=== PATIENT | female | born 1985 | race Caucasian/White ===

== ENCOUNTER → 2021-07-16 12:24 | Outpatient (CLI) | payer OTHER, MEDICAID, SELFPAY ==
[2021-07-16 19:17] LABS: Alanine Aminotransferase 30 IU/L (<35); Albumin 3.9 g/dL (3.5-5.0); Albumin Globulin Ratio 1.4 (1.0-2.8); Alkaline Phosphatase 48 U/L (38-126); Aspartate Aminotransferase 32 IU/L (14-36); BUN Creatinine Ratio 20.8 (6-22); Bilirubin Total 0.5 mg/dL (0.2-1.3); Blood Urea Nitrogen 11 mg/dL (7-17); Calcium 9.2 mg/dL (8.4-10.2); Carbon Dioxide 27 mmol/L (22-32); Chloride 101 mmol/L (98-107); Estimated Glomerular Filt Rate > 60 mL/min (>60); Globulin 2.8 g/dL (1.7-4.1); Glucose 82 mg/dL (70-100); HEMOLYSIS < 15 (0-50); Potassium 4.4 mmol/L (3.4-5.1); Sodium 137 mmol/L (137-145); Total Protein 6.7 g/dL (6.3-8.2)
== END ==
PROVIDERS: PCP Physician Assistant; Visit Provider Physician Assistant
DX: R74.8 Abnormal levels of other serum enzymes (principal)
CPT/HCPCS: 80053

== ENCOUNTER → 2021-07-31 09:38 | Outpatient (CLI) | payer OTHER, MEDICAID, SELFPAY ==
--- NOTE | 2021-07-31 09:38 | DI.US.S_ITS ---
PROCEDURE: US ABDOMEN LIMITED INDICATIONS: eval lumps on b/l lumbar/sacral area TECHNIQUE: Real-time focused scanning was performed of the abdomen, with image documentation. COMPARISON: None. FINDINGS: Three palpable areas were examined. The 1st area in the left lower back changes slightly with Valsalva and with bending. This focus is isoechoic to fat and is seen within the deeper paraspinal tissues, below the subcutaneous fat layer. The 2nd palpable area in the left low back demonstrates no abnormalities by ultrasound. The 3rd palpable area, more prominent with bending is consistent with bone. IMPRESSION: 1. Possible small fat containing lumbar hernia corresponding to the 1st left low back palpable lump. 2. No other suspicious abnormalities. Dictated by: Leisa Bermudez M.D. on 07/31/2021 at 13:25 Approved by: Leisa Bermudez M.D. on 07/31/2021 at 13:30
== END ==
PROVIDERS: PCP Physician Assistant; Referring Provider Physician Assistant; Visit Provider Physician Assistant
DX: R22.2 Localized swelling, mass and lump, trunk (principal)
CPT/HCPCS: 76705

== ENCOUNTER → 2021-08-21 07:34 | Outpatient (CLI) | payer OTHER, MEDICAID, SELFPAY ==
--- NOTE | 2021-08-21 07:36 | DI.MRI.S_ITS ---
PROCEDURE: MR LUMBAR SPINE WO CON INDICATIONS: Strain of muscle, fascia and tendon of lower back TECHNIQUE: Noncontrast sagittal T1 spin echo and T2 fast echo, sagittal STIR, and T2 fast spin echo through the lumbar spine. In cases with scoliosis, additional coronal T2 fast spin echo may be performed. COMPARISON: None. FINDINGS: Image quality: Excellent. Alignment and Curvature: There is normal bony alignment. Bone Marrow: Marrow is of normal overall signal. No acute vertebral body compression fractures. Spinal Cord: Conus medullaris terminates at the normal level. Visualized cord demonstrates normal signal and size. Regional Soft Tissues: No paravertebral masses. T12-L1: Normal appearance. L1-L2: Normal appearance. L2-L3: Normal appearance. L3-L4: Mild facet hypertrophy. No spinal canal or neural foraminal stenosis. L4-L5: Diffuse disc bulge with a superimposed broad-based posterior disc protrusion flattens and indents the ventral thecal sac. Mild displacement of the descending L5 nerve roots in both subarticular zones. No neural foraminal stenosis. Mild facet hypertrophy. L5-S1: No spinal canal or neural foraminal stenosis. Mild facet hypertrophy. IMPRESSION: Disc bulge and protrusion at L4-L5 which produces mild displacement of the descending L5 nerve roots. Correlate for any corresponding L5 radicular symptoms. Otherwise no spinal canal or neural foraminal stenosis. Dictated by: Pedro Mixon M.D. on 08/21/2021 at 8:30 Approved by: Pedro Mixon M.D. on 08/21/2021 at 8:31
== END ==
PROVIDERS: PCP Physician Assistant; Referring Provider Physician Assistant Surgical; Visit Provider Physician Assistant Surgical
DX: S39.012A Strain of muscle, fascia and tendon of lower back, initial encounter (principal); M51.26 Other intervertebral disc displacement, lumbar region; X58.XXXA Exposure to other specified factors, initial encounter
CPT/HCPCS: 72148

== ENCOUNTER → 2021-12-03 07:41 | Outpatient (CLI) | payer OTHER, MEDICAID, SELFPAY ==
[2021-12-03 20:52] LABS: COVID19 - ORCAS (NP or Nasal) Negative (Negative)
== END ==
PROVIDERS: PCP Physician Assistant; Visit Provider Family Medicine
DX: Z20.822 Contact with and (suspected) exposure to COVID-19 (principal); Z01.812 Encounter for preprocedural laboratory examination
CPT/HCPCS: C9803; U0003

== ENCOUNTER 2021-12-04 10:59 | Day surgery (SDC) | payer OTHER, MEDICAID, SELFPAY ==
[2021-11-27 14:28] VITALS: BMI 21.4
[2021-12-04] VITALS (7 sets, daily range): BP systolic 95–109; BP diastolic 56–66; PULSE 54–94; RESP 16–28; TEMP 36.3–36.8; O2SAT 98–100; BMI 21.4
--- NOTE | 2021-12-04 | PATH_ITS ---
[facility] Accession Number: [id number] . 01 Material submitted: . back - LEFT LOWER BACK . 01 Clinical history: . EXCISIONAL BIOPSY OF MASS BENIGN LIPOMATOUS NEOPLASM OF SKIN AND SUBCUTANEOUS . 01 Diagnosis: Soft Tissue, Left Lower Back, Excision: Lipoma. MRV 12/06/2021 1630 Local . 01 Electronically signed: . Marium Magallon MD, Pathologist NPI- [id number] . 01 Gross description: . LEFT LOWER BACK: Received in formalin are 3 fragments of welsh soft tissue measuring 4.0 x 3.0 x 1.6 cm. Tissue is inked. Specimen is sectioned and submitted in phlebotomy services representative sections in 3 cassettes. /JAMILAH 12/05/2021 1853 Local . 01 Pathologist provided ICD-10: D17.1 . 01 CPT . 432497 Performed at: 01 [facility] [address] [place] [address] [address], [place], [place] [id number] MD Chay Dunaway MD Phone: [phone]
[2021-12-04] MEDS: LACTATED RINGERS 1,000 ML 42 ML IV (11:32)
--- NOTE | 2021-12-04 11:43 | PM.HP.1 ---
History of Present Illness History of Present Illness Date Patient Seen: 12/04/21 Time Patient Seen: 11:43 Chief complaint: Excisional Biopsy of L Lower Back Mass Narrative: Bri is here for her lipoma excision. See office note from August for details. Patient History Medical History Acute maxillary sinusitis Breast lump in lower-outer quadrant Chicken pox Closed fracture of lumbar vertebra without spinal cord injury (~07/22/13) Elevated liver enzymes Encounter for confirmation of test result with physical examination Herpes zoster without complication Other abnormal cytological findings on specimens from cervix uteri Vaginal bleeding before 22 weeks gestation Venereal disease, unspecified Family & Social History Family History Father Atrial fibrillation Mother Arthritis Hyperlipidemia Social History: household members significant other Tobacco & Substance use: Smoking Status Never smoker alcohol intake never Substance Use Type does not use Meds Home Medications and Allergies Home Medications Medication Instructions Recorded Confirmed Type No Known Home Medications 12/04/21 12/04/21 History Allergies Allergy/AdvReac Type Severity Reaction Status Date / Time Sulfa (Sulfonamide Allergy Mild Rash Verified 12/04/21 11:33 Antibiotics) [SULFA (SULFONAMIDE ANTIBIOTICS)] Exam Vital Signs (past 8 hours): - 12/04/21 11:16 Temperature 97.3 F L Pulse Rate 54 L Respiratory Rate 16 Blood Pressure 98/59 L Pulse Oximetry 100 Oxygen Delivery Method Room Air Oxygen Delivery Method Room Air Narrative Exam Narrative: Left lower back soft tissue mass Assessment & Plan Assessment and plan (1) Palpable mass of lower back: Status: Acute Plan Plan for excision of left lower back mass in the OR. She understands the risks and benefits and agrees to proceed. Time Spent With Patient Critical Care time: I spent a total of [] minutes of critical care time on this patient's care today; this time is exclusive of procedural time.
--- NOTE | 2021-12-04 12:18 | SUR.OPER ---
Left Lateral on a samayoa bag, head on pillow, gel axillary roll in place, bottom leg bent with gel pad under knee to foot, upper leg straight and supported with pillows. Upper arm supported by pillows and secured over bottom arm to padded arm board, gel pad placed under right arm. Safety belt at torso, tape over blanket lower legs and over upper legs.
[2021-12-04] MEDS: BUPIVACAINE 0.5% W/ EPI (PF) 30 ML VIAL INJ (12:23)
--- NOTE | 2021-12-04 12:28 | PM.OP.1 ---
Operative Date/Time/Diagnoses Date of procedure: 12/04/21 Time of procedure: 12:28 Pre-op diagnosis: Left lower back lipoma Post-op diagnosis: same Procedure & Clinicians Procedure: Excisional biopsy of left lower back lipoma Same procedure as scheduled: Yes Surgeon: Saeid Mauricio Telegraph Equipment Maintainer: Mari Billy Operative Notes Procedure in detail: The patient was marked in the preoperative holding area. The patient was brought to the operating room, placed on the table in the supine position and general anesthesia was induced via LMA. She was then positioned in the right lateral decubitus position on a beanbag. The left lower back was prepped and draped in the usual fashion and a time-out was performed. We made a transverse incision over the mass of roughly 8 cm. We dissected down through subcutaneous adipose tissue until we encountered the mass which was about 5 cm x 5 cm x 5 cm and was consistent with a lipoma. The mass was excised. A few bleeders were cauterized and one bleeder had to be tied off with a [id number]-lcllf using 3-0 Vicryl. Once we achieved hemostasis we closed in layers using multiple interrupted 3-0 Vicryl dermal sutures followed by a running 4 Monocryl subcuticular closure. EBL: 10 mL Specimen: Lipomatous soft tissue mass of the left lower back roughly 5 cm Post-operative Condition: stable Disposition: PACU
[2021-12-04] MEDS: OXYCODONE IR 5 MG TABLET PO (12:50)
[2021-12-04] MEDS: ACETAMINOPHEN 325 MG TABLET 650 MG PO (12:50)
[2021-12-04] MEDS: ONDANSETRON 4 MG/2 ML INJ IV (12:51)
--- NOTE | 2021-12-04 13:46 | SUR.PHASEII ---
Pt ready to go, left in stable condition.
== END 2021-12-04 13:40 | disposition home or self-care (01) ==
PROVIDERS: PCP Physician Assistant; Referring Provider Surgery; Visit Provider Surgery
PROC: (CPT 21931; principal; 2021-12-04 11:30)
DX: D17.1 Benign lipomatous neoplasm of skin and subcutaneous tissue of trunk (principal)
CPT/HCPCS: 21931; 81025; J1100; J2250; J2405; J2704; J3010

== ENCOUNTER → 2022-10-04 11:08 | Outpatient (CLI) | payer OTHER, MEDICAID, SELFPAY ==
--- NOTE | 2022-10-04 11:11 | DI.US.S_ITS ---
PROCEDURE: US OB <= 14 WEEKS FETUS INDICATIONS: DATING, AMA OUTSIDE/PRIOR DATING DATA: Last menstrual period (LMP): 07/28/2022. LMP-based estimated date of delivery (SWAPNA): 05/04/2023. The calculations are made using the clinical SWAPNA of 05/04/2023. TECHNIQUE: Real-time scanning was performed of the fetus and maternal pelvic organs, with image documentation. Endovaginal scanning was also performed to better visualize the fetus and maternal ovaries. COMPARISON: None. FINDINGS: Embryo: Gestational sac is seen measuring 5.0 centimeters, consistent with a gestational age of 10 weeks and 5 days. pole is present with crown-rump length measuring 2.44 centimeters, consistent with 9 weeks and 1 day. Yolk sac is present. There is a small subchorionic hemorrhage measuring 0.9 x 1.1 x 0.6 centimeters. Heart rate: 171 Maternal organs: Ovaries are normal in appearance bilaterally. IMPRESSION: Single live intrauterine with gestational age of 10 weeks and 0 days. Small subchronic hemorrhage is present. We strive to produce accurate, complete, and clear reports of imaging services. To assist us in improving patient care, this report was composed using standard report templates and voice recognition software. Therefore, it may contain abnormal punctuation, insertions and/or omissions. Occasional wrong-word or sound-alike substitutions may occur. Though we review the report and make efforts to correct it, we do recommend that the report be read carefully in proper context to recognize any text inaccuracies. Dictated by: Ken Mcwilliams M.D. on 10/04/2022 at 12:49 Approved by: Ken Mcwilliams M.D. on 10/04/2022 at 12:55
== END ==
PROVIDERS: PCP Physician Assistant; Referring Provider Family Medicine; Visit Provider Family Medicine
DX: O09.891 Supervision of other high risk pregnancies, first trimester (principal); Z3A.10 10 weeks gestation of pregnancy
CPT/HCPCS: 76801; 93976

== ENCOUNTER → 2022-10-18 12:34 | Outpatient (CLI) | payer OTHER, MEDICAID, SELFPAY ==
[2022-10-18 12:56] LABS: Specimen Label NATERA
[2022-10-18 13:09] LABS: Add Manual Diff / Slide Review NO; Basophils Absolute Auto 100 /uL (0-100); Basophils Percent Auto 0.6 % (0-2); Eosinophils Absolute Auto 200 /uL (0-450); Eosinophils Percent Auto 1.7 % (2-4); Hematocrit 37.7 % (36-46); Lymphocytes Absolute Auto 1500 /uL (1100-4500); Lymphocytes Percent Auto 14.1 % (25-40); Mean Corpuscular HGB Conc 34.4 % (30-36); Mean Corpuscular Hemoglobin 31.5 PG (26-34); Mean Corpuscular Volume 91.5 fL (80-100); Monocytes Absolute Auto 600 /uL (0-900); Monocytes Percent Auto 5.7 % (3-14); Neutrophils Absolute Auto 8400 /uL (1500-7000); Neutrophils Percent Auto 77.9 % (50-75); Platelet Count 301 X10^3/uL (150-400); Red Blood Cell Count 4.12 X10^6/uL (4.0-5.2); Red Cell Distribution Width 13.4 % (11.6-14.8); White Blood Cell Count 10.8 X10^3/uL (4.5-11.0)
[2022-10-19 04:10] LABS: RPR Screen Non Reactive (Non Reactive)
[2022-10-20 12:23] LABS: Varicella IgG Antibody 900 index (Immune >165)
[2022-10-21 17:21] LABS: Hepatitis B Surface Antigen NEGATIVE s/c (NEGATIVE); Rubella Antibody IgG 22.2 IU/mL (>15)
[2022-10-21 17:32] LABS: HIV 1 & 2 Ab/Ag 4th Gen Combo NEGATIVE (NEGATIVE); Hep C Virus Ab w/Reflex Quant NEGATIVE s/c (NEGATIVE)
== END ==
PROVIDERS: PCP Physician Assistant; Referring Provider Family Medicine; Visit Provider Family Medicine
DX: O09.521 Supervision of elderly multigravida, first trimester (principal); Z3A.00 Weeks of gestation of pregnancy not specified
CPT/HCPCS: 80055; 86787; 86803; 86850; 86900; 86901; 87389

== ENCOUNTER 2023-04-30 07:38 | Inpatient (IN) | payer OTHER, MEDICAID, SELFPAY ==
--- NOTE | 2023-04-30 08:29 | PM.OBHP.1 ---
OB HPI Date/Time Date of admission: 04/30/23 Date Patient Seen: 04/30/23 Time Patient Seen: 08:00 History of Present Condition Chief complaint: induction Narrative: Bri Hill is a 37 year old female, @ 39 weeks 3 days based on sure LMP and 10w US presenting for elective induction of labor. Denies contractions or leaking of fluid. Reports scant spotting following yesterday's membrane sweep during her appointment. Has been previously counseled on option of elective induction of labor between 39w-40w during appointment. Is interested in elective IOL and does not present with any questions. CE at yesterday's appointment was /-1. Vic BAILEY at bedside. care initiated with [facility] at , transferred to [facility] and again to this [facility] practice. notible for: covid positive @ 03/25/2023. Indications Indication for induction OB: other (elective) History of Present care: good care, initiated at week # (11), number of visits (11) and pounds weight gain (59) Dating criteria: LMP confirmed by 1st trimester US Ultrasounds: normal mid trimester US Preadmission Labs Blood type: B (+) positive -: Antibody screen: negative, GBS status: negative, HBsAG: negative, HIV: negative and RPR/VDLR: negative -: Rubella: immune and Varicella: immune HCT: 34.8 HCAB: negative Cell-free DNA: negative 1 hr GTT: 127 Prior (ies) History: , PPROM @ 34w on 10/25/2018 Evaluation Evaluation Baseline heart rate: 130 Variability: Moderate (11-25) monitor accelerations: Present Monitor Decelerations: Absent Contraction Frequency (minutes): 5 (-6) Uterine Contraction Intensity: Mild Status: Category l Dilation (cm): 4 Effacement (%): 75 Dilation: 3-4 cm Effacement: 60-70% station: -2 Position of cervix: posterior Consistency: soft Donohue score: 7 PFSH Medical History Shingles History of delivery, currently Elevated liver enzymes Chicken pox Closed fracture of lumbar vertebra without spinal cord injury (~07/22/13) Herpes zoster without complication Eczema of hand Breast lump in lower-outer quadrant Encounter for confirmation of test result with physical examination Surgical History History of skin surgery (~2021) Family History Father Atrial fibrillation Early onset Alzheimer's dementia Mother Arthritis Hyperlipidemia Skin cancer Grandmother Cancer Heart disease Hyperlipidemia Family/Other Breast cancer Ovarian cancer Social History marital status: unmarried,living together number of children: 1 household members: significant other and children lives independently: No caregiver/support person: Yes housing: house pets and animals: Yes (dog, horse) education level: college (associate's degree) occupational status: employed (self-employed, retail store) current occupational exposures/hazards: Yes (insect sprays for horse) special milena needs: No travel history: recent (domestic only) seatbelt use: always helmet use: Yes water heater temp set < 120 deg: Yes working smoke detector in home: Yes fire extinguisher in home: Yes carbon monox detector in home: Yes firearms in home: No do you feel safe at home: Yes Smoking Status: Former smoker (occasionally in college) second hand exposure: No alcohol intake: never substance use type: does not use during the past year weight has: decreased > 10 lbs (intentional w/ diet and exercise) well-balanced diet: daily or most days daily servings fruits/ve or more times/day caffeine: Yes (1 cup coffee in AM) Type(s) of exercise: walking and other (horseback riding) frequency: daily additional social history: vits: taking taking calcium also tob:no etoh: no no meds PMHX: asthma as child back problems due -- fractured vertebra @ 16 yo -- falling off horse lives with and son 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 [facility] Meds Home Medications and Allergies Home Medications Medication Instructions Recorded Confirmed Type calcium carb-vit D3-magnesium 250 2 cap PO DAILY 09/30/22 04/30/23 History mg-200 unit-125 mg capsule vitamin-ferrous sulfate See Rx Instructions .Route .COMPLEX 09/30/22 04/30/23 History 27 mg iron-folic acid 0.8 mg tablet Allergies Allergy/AdvReac Type Severity Reaction Status Date / Time Sulfa (Sulfonamide Allergy Mild Rash Verified 04/16/23 10:46 Antibiotics) [SULFA (SULFONAMIDE ANTIBIOTICS)] Review of Systems Review of Systems ROS: Yes All systems reviewed with the patient and are negative except as otherwise documented OB Exam Vital signs Blood Pressure: 120/70 Pulse Rate: 87 Temperature: 97.0 F Resp Effort & Inspection: normal respiratory effort and able to speak in complete sentences Auscultation: clear to auscultation bilaterally Cardio Rate: regular rate Rhythm: regular rhythm Presentation: vertex Objective Labs 04/30/23 08:40 Assessment and Plan Assessment and Plan Assessment and Plan narrative: A: Term Primip Not in labor Elective IOL- favorable AMA No indication for antibiotics FHT Cat 1 P: Provided elective IOL counseling and obtained informed consent in writing. Counseled on option of initiating induction with pitocin or AROM, patient elects pitocin.? Pitocin IOL per-protocol.? Continue with continuous monitoring per pitocin protocol.? Labor support, PRN. Reassess in 4-6 hours or sooner, prn.?
[2023-04-30] MEDS: OXYTOCIN PREMIX 30 UNIT/500 ML PLAST..BAG IV (08:53)
[2023-04-30] MEDS: LACTATED RINGERS 1,000 ML 100 ML IV (08:53)
[2023-04-30 08:56] LABS: Add Manual Diff / Slide Review NO; Basophils Absolute Auto 100 /uL (0-100); Basophils Percent Auto 0.5 % (0-2); Eosinophils Absolute Auto 100 /uL (0-450); Eosinophils Percent Auto 0.9 % (2-4); Hematocrit 38.8 % (36-46); Hemoglobin 13.3 g/dL (12.0-16.0); Lymphocytes Absolute Auto 1500 /uL (1100-4500); Lymphocytes Percent Auto 13.9 % (25-40); Mean Corpuscular HGB Conc 34.4 % (30-36); Mean Corpuscular Volume 93.1 fL (80-100); Monocytes Absolute Auto 700 /uL (0-900); Monocytes Percent Auto 6.5 % (3-14); Neutrophils Absolute Auto 8300 /uL (1500-7000); Neutrophils Percent Auto 78.2 % (50-75); Platelet Count 248 X10^3/uL (150-400); Red Blood Cell Count 4.16 X10^6/uL (4.0-5.2); Red Cell Distribution Width 12.8 % (11.6-14.8); White Blood Cell Count 10.6 X10^3/uL (4.5-11.0)
[2023-04-30 09:22] VITALS: BP 120/70
[2023-04-30 10:49] VITALS: BP 120/70; PULSE 87; TEMP 36.1
--- NOTE | 2023-04-30 12:30 | PM.OBPNLAB ---
Date/Time Date Patient Seen: 04/30/23 Time Patient Seen: 12:10 Pain Control Pain control: tolerating well Comments: Swaying/sitting on yoga ball with partner at her side. Feeling contractions but describes them as mild and is able to talk through them. Declines AROM unless pitocin isn't working. VS: BP 131/67, HR 80bpm, T 97.2F Temporal Pelvic Exam Dilation (cm): 4 Effacement (%): 80 station: -2 Comments: CE deferred, not yet in labor Contractions Contractions on admission: none Monitor mode: External Pitocin rate (mU/min): 12 Contraction frequency (min): 4 Contraction duration (min): 1 Contraction pattern: Regular Contraction intensity: Mild Status status: Category l Heart Rate Baseline: 130 Monitor Accelerations: Present Monitor Decelerations: Absent Monitor Variability: Moderate Assessment and Plan Assessment: induction ongoing Plan: continuous present management Comments: A: Term primip Early labor Elective IOL Cat 1 P: Discussed progression of contractions with pitocin and offered option of AROM for further intervention as desired, pt declines. Continue titrating pitocin per protocol. Provide labor support as needed. Reassess in 4-6 hours or sooner as needed. Repeat CE after strong contractions x 2 hours.
--- NOTE | 2023-04-30 16:15 | PM.OBPNLAB ---
Date/Time Date Patient Seen: 04/30/23 Time Patient Seen: 16:15 Pain Control Pain control: tolerating well Comments: Contraction intensity increased around 2 hours ago. Now breathing through moderate intensity contractions and is requesting to get into the tub. FOB at side providing labor support. VS: BP 117/69, HR 73bpm, T 36.6C Temporal Pelvic Exam Dilation (cm): 6 Effacement (%): 80 station: -1 Amniotic membrane status: Intact Contractions Monitor mode: External Pitocin rate (mU/min): 18 Contraction frequency (min): 2 Contraction duration (min): 1 Contraction pattern: Regular Contraction intensity: Mild Status status: Category l Heart Rate Baseline: 125 Monitor Accelerations: Present Monitor Decelerations: Absent Monitor Variability: Moderate Assessment and Plan Assessment: active labor Plan: continuous present management Comments: Continuous labor support. Titrate pitocin down as able. Anticipate NSVB soon.
--- NOTE | 2023-04-30 17:40 | PM.OBPRVD ---
Labor & Delivery Delivery date: 04/30/23 Intrapartal Events: None Cervical ripening method: none Induction method: per pitocin protocol Delivery monitor: external FHT Route of delivery: Episiotomy description: None L&D Laceration Description: Vaginal - 1st Degree (hemostatic, no repair indicated) Quantitative Blood Loss: 50 Anesthesia Type: Other (nitrous oxide) Narrative: Bri Hill is a 37yo, @ 39w3d by LMP and 10 week US presenting for elective induction of labor, achieved with pitocin (max dose 22mu/min). Labor progressed rapidly from 6cm dilated to in 1 hour. She began to feel rectal pressure while in the tub and was presumed complete. Assisted out of the tub with SROM for clear fluid while moving Bri to bed. Pitocin off at that time. Pushed on hands and knees with delivery of baby boy @ 1706. FHTs noted to be in the 70's-90's for several minutes prior to the . RT called to stand by for the . No nuchal cord, shoulders delivered with gentle guidance. Passed baby to mom through maternal legs. Active management of the third stage of labor initiated with pitocin. Assisted Bri onto her back with her baby in her arms. of 7,7 and 8 @ 1, 5, and 10 min respectively. Continuous grunting heard from baby. Cord clamped at 7 min by CNM and cut by dad. Baby was moved to warmer for more assessment, suction and vigorous stimulation. Delivery of Shultze placenta with traction and single maternal push @ 1720. Inspection revealed a 1st degree vaginal laceration that was hemostatic and well approximated with no indication for repair. QBL: 50mL. Baby returned to mom's chest. Both mom and baby stable and skin to skin as I left the room. Baby 1: Infant gender: Male Presentation: vertex Position: Right Occiput Posterior Placenta delivery description: Expressed Cord Vessel Description: 3 Vessels score (1 min): 7 score (5 min): 7 score (10 min): 8 weight: 3.336 kg Plan for aftercare: Routine care
[2023-04-30] MEDS: ACETAMINOPHEN 325 MG TABLET 650 MG PO (17:56)
[2023-04-30] MEDS: KETOROLAC 30 MG/ML VIAL IV (18:09)
[2023-05-01] MEDS: ACETAMINOPHEN 325 MG TABLET 650 MG PO ×3 (00:04→13:34)
[2023-05-01] MEDS: IBUPROFEN 600 MG TABLET PO ×3 (00:05→13:36)
--- NOTE | 2023-05-01 08:19 | P.DS_ITS ---
Discharge Providers Provider Date of admission: 04/30/23 07:38 Discharge Date: 05/01/23 Primary care physician: Aimee Cowan PA-C Consults: 05/01/23 17:27 Consult to Humanities Professor Routine Comment: Discharge provider: Maxine Gardner CNM Summary Hospital Course Date Patient Seen: 05/01/23 Time Patient Seen: 08:20 Diagnoses: O70.0 Hospital Course: PP day:1. exclusively and reports pain/discomfort with latch. Feels like baby Arrow might have a tongue tie. Denies cracking/bleeding nipples. Has not seen IBCLC yet. Voiding Ambulating w/o assistance Bleeding is rubra, scant/minimal Pain is well controlled with tylenol and ibuprofen Fundus firm/U-1/midline hemorrhoids present throughout . Desires discharge to home [place] to make 3pm ferry. Peripartum Data Infant Delivery Method: Natural Vaginal Laceration Description: Vaginal - 1st Degree (hemostatic, no repair indicated) complications: none 1: Gender: Male Disposition of : home Discharge Diagnosis (1) First degree perineal laceration during delivery: Start Date: 04/30/23 Start Time: 17:06 Status: Acute Problem Details: hemostatic laceration, no repair indicated; expected routine PP course Status at Discharge Cognitive/behavioral status at discharge: oriented and calm Functional status at discharge: independent ambulation Overall status at discharge: patient is back to baseline Time Spent with Patient Time attestation: Total time spent providing and/or coordinating discharge services: Objective Labs 04/30/23 08:40 Labs: Laboratory Results - last 24 hr 04/30/23 08:40 WBC 10.6 RBC 4.16 Hgb 13.3 Hct 38.8 MCV 93.1 MCH 32.0 MCHC 34.4 RDW 12.8 Plt Count 248 Neut % (Auto) 78.2 H Lymph % (Auto) 13.9 L Starr % (Auto) 6.5 Eos % (Auto) 0.9 L Baso % (Auto) 0.5 Neut # (Auto) 8300 H Lymph # (Auto) 1500 Starr # (Auto) 700 Eos # (Auto) 100 Baso # (Auto) 100 Blood Type B Positive Antibody Screen Negative Exam Vital Signs (past 8 hours): BP: 120/70 HR: 87 T: 36.1C Temporal Other: Fundus firm @ u-1, midline. Lochia small, no clots. Discharge Plan Discharge Plan Patient Disposition: Home Provider Discharge Comment: after 18hr check Discharge orders & Medications Prescriptions: New ibuprofen 600 mg Tablet 600 mg PO Q6HR PRN (Reason: Pain, Mild (1-3)) 14 Days Qty: 60 0RF Continued vit-ferrous sulfat-FA 27 mg iron- 0.8 mg tablet See Rx Instructions .ROUTE .COMPLEX Rx Instructions: per md orders calcium carb-vit D3-magnesium 250-200-125 mg-unit-mg capsule 2 cap PO DAILY Follow up/Referrals: Maxine Gardner CNM [[facility]] - (Follow-up 2 week phone call 05/14/23 @ 2887 Follow-up 6 week office visit 06/11/23 @ 1115am) Aimee Cowan PA-C [Primary Care Provider] - Diet/Activity/Treatments Activity: bed rest x 2 weeks, pelvic rest x 6 weeks Skin/Wound/Dressing Care Report to your healthcare provider any signs of infection, such as:: chills, fever, increased pain, unusual drainage and unusual redness Visit Report/Discharge Packet Instructions: DI for Depression Stand Alone Forms: Discharge: Care, Patient Portal/API, Stroke Signs & Symptoms Discharge Data Primary Care Provider: Aimee Cowan
== END 2023-05-01 14:05 | disposition home or self-care (01) | DRG 560 ==
PROVIDERS: Admitting Provider Nurse Practitioner Obstetrics & Gynecology; PCP Physician Assistant; Referring Provider Nurse Practitioner Obstetrics & Gynecology; Visit Provider Nurse Practitioner Obstetrics & Gynecology
DX: O80 Encounter for full-term uncomplicated delivery (principal); Z3A.39 39 weeks gestation of pregnancy; Z37.0 Single live birth
CPT/HCPCS: 36415; 59050; 85025; 86850; 86900; 86901; G0379; J1885; J2590